=== PATIENT | female | born 1995 | race Caucasian/White ===

== ENCOUNTER 2020-08-05 18:26 | Emergency (ER) | payer OTHER, BC ==
[~2020-08-05] VITALS: Ht 170.2 cm; Wt 70.0 kg
[~2020-08-05 18:26] MED LIST: DEP0PROVERA; NAPROSYN375 MG PO; NO MEDS; PENICILLN250 MG/5 M OR; TYLENOL & COD12.5 ML OR
[2020-08-05] MEDS ORDERED: MOTRIN400 MG/TAB PO (19:53)
[2020-08-05 20:14] VITALS: BP 128/81
== END 2020-08-05 20:14 | disposition home or self-care (01) | DRG 103 ==
LOC: ED 18:26
DX: R51.9 Headache, unspecified (principal); V43.52XA Car driver injured in collision with other type car in traffic accident, initial encounter

== ENCOUNTER 2024-11-30 16:32 | Emergency (ER) | payer SELFPAY ==
[2024-11-30] VITALS (7 sets, daily range): BP systolic 108–123; BP diastolic 67–102
[~2024-11-30] VITALS: Ht 170.2 cm; Wt 75.9 kg
[~2024-11-30 16:32] MED LIST changes: +MOTRIN400 MG/TAB PO
[2024-11-30] MEDS ORDERED: Diph, Acellular Pertussis, Tet 0.5 ML/VIAL (Tdap) SDV IM STA (16:44)
[2024-11-30] MEDS ORDERED: AMOXICILLIN & POT CLAVULANATE 875 MG/TAB PO ONE (16:45)
[2024-11-30] MEDS ORDERED: AMOX/K CLAV875 M1 PO (16:50)
== END 2024-11-30 17:59 | disposition home or self-care (01) | DRG 605 ==
LOC: ED 16:32
DX: S90.571A Other superficial bite of ankle, right ankle, initial encounter (principal); W54.0XXA Bitten by dog, initial encounter; Y92.410 Unspecified street and highway as the place of occurrence of the external cause
CPT/HCPCS: 90715